=== PATIENT | male | born 1995 | race Caucasian/White ===

== ENCOUNTER 2020-05-27 12:50 | Emergency (ER) | payer OTHER, SELFPAY ==
[2020-05-27 13:01] VITALS: BP 150/90; PULSE 68; RESP 20; TEMP 36.3; O2SAT 99
--- NOTE | 2020-05-27 13:22 | ED.GENADULT ---
HPI - General Adult General Chief complaint: Ear Stated complaint: ear pain Time Seen by Provider: 05/27/20 13:22 Source: patient and RN notes reviewed Mode of arrival: ambulatory Limitations: no limitations History of Present Illness HPI narrative: 24 year old male who presents to [facility] care with complaints of acute pain to his right ear which started this morning. Patient denies any known trauma to his right ear, denies any recent swimming or any noted drainage from his right ear.Patient denies any fevers, chills or sweats, denies any sore throat or any nasal congestion or drainage. MD complaint: right ear pain Onset (ago): hour(s) (5-6 hours ago) Location: head Radiation: non-radiation Severity: moderate Severity scale (1-10): 6 Quality: aching and sharp Pain Consistency: constant Relieving factors: none Associated symptoms: denies other symptoms Treatments prior to arrival: NSAID Related Data Allergies Allergy/AdvReac Type Severity Reaction Status Date / Time No Known Allergies Allergy Verified 11/11/19 09:43 Review of Systems Review of Systems: Narrative: CONSTITUTIONAL: Denies fever, chills, or sweats. EYES: Denies visual changes, redness, or discharge. ENT: Denies rhinorrhea, congestion, sore throat,positive for right ear pain. CARDIOVASCULAR: Denies chest pain, palpitations, or edema. RESPIRATORY: Denies cough or dyspnea. GASTROINTESTINAL: Denies abdominal pain, nausea, vomiting, or diarrhea. GENITOURINARY: Denies dysuria or hematuria. SKIN: Denies rash or itching. MUSCULOSKELETAL: Denies back pain, joint pain, or myalgia. NEUROLOGIC: Denies headache, numbness, or weakness. PSYCHIATRIC: Denies anxiety or depression. All systems reviewed & are unremarkable except as noted in HPI and below PMFSH Past Medical History Medical History (Updated 05/28/20 @ 20:13 by Heather Gutierrez NP) Obesity Surgical History Surgical History (Updated 05/28/20 @ 19:53 by Heather Gutierrez NP) History of tonsillectomy Hx of appendectomy Social History Social History (Updated 05/28/20 @ 19:54 by Heather Gutierrez NP) Smoking status: Never smoker Living arrangements: with family Gender identity (if verbalized by the patient): Male Comments At time of signature, agree with nursing past medical, surgical, social history. There is no relevant family history pertinent to the presenting complaint Exam Narrative: Exam Narrative: GENERAL: Well-appearing, well-nourished, and in no acute distress. HEAD: Normocephalic, atraumatic. EYES: PERRLA and EOMI. ENT: Nares clear, no rhinorrhea or epistaxis. Mucous membranes moist.Right TM red and bulging ear canal red and excoriated no drainage noted, Left TM normal with good light reflex, throat pink with no exudates or lesions NECK: Supple.no lymphadenopathy CHEST: Clear to auscultation. No respiratory distress.SAO2 99% on room air HEART: Regular rate and rhythm. No murmur heard. Normal peripheral pulses. ABDOMEN: Soft, nontender, nondistended, normal active bowel sounds. EXTREMITIES: Normal range of motion. No edema. SKIN: Warm, dry, no rash. NEURO: No focal deficits. Alert and oriented x3. Course Vital Signs Vital signs: Vital Signs Temperature 36.3 C L 05/27/20 13:01 Pulse Rate 68 05/27/20 13:01 Respiratory Rate 05/27/20 13:01 Blood Pressure 150/90 H 05/27/20 13:01 Pulse Oximetry 99 05/27/20 13:01 Temperature 36.3 C L 05/27/20 13:01 Pulse Rate 68 05/27/20 13:01 Respiratory Rate 20 05/27/20 13:01 Blood Pressure 150/90 H 05/27/20 13:01 Pulse Oximetry 99 05/27/20 13:01 Medical Decision Making Differential Diagnosis Differential Diagnosis: otitis media, otitis externa, right ear pain, URI, viral syndrome Medical Records Medical records reviewed: Yes I reviewed the patient's medical records. Vital Signs Vital Signs: Vital Signs Temperature 36.3 C L 05/27/20 13:01 Pulse Rate 68 05/27/20 13:01 Respiratory Rate
== END 2020-05-27 13:51 | disposition home or self-care (01) ==
PROVIDERS: Emergency Provider Registered Nurse
DX: H60.501 Unspecified acute noninfective otitis externa, right ear (principal); H65.01 Acute serous otitis media, right ear
CPT/HCPCS: 99213; G0463

== ENCOUNTER 2023-07-08 08:11 | Emergency (ER) | payer OTHER, SELFPAY ==
--- NOTE | ~2023-07-08 | XR_ITS ---
EXAMINATION: XR heel LT min 2V DATE: 07/08/2023 08:40 INDICATION: Left heel pain. TECHNIQUE: 2 views of left calcaneus were obtained. COMPARISON: None. FINDINGS: Bone alignment is normal. No fracture. Joint spaces are normal. IMPRESSION: 1. Normal left calcaneus. Reviewed, dictated and finalized at location A. IMPRESSION: 1. Normal left calcaneus.
--- NOTE | 2023-07-08 08:18 | ED.LOWEXIN ---
HPI - Extremity Injury (Lower) General Chief Complaint: Extremity Problem,Nontraumatic Stated Complaint: L FOOT PAIN Source: patient and RN notes reviewed Mode of arrival: ambulatory Limitations: no limitations History of Present Illness HPI Narrative: Patient is a 27-year-old male who presents to the [facility] with complaints of left heel pain. Patient states that he experienced this pain yesterday but it worsened upon waking. Patient states that the pain worsens with bearing weight or ambulating. He denies known injury. Patient is neurovascularly intact distal to the area. He denies numbness and sensation is intact. There may be very minor swelling. There is no erythema or signs of injury. Related Data Home Medications Medication Instructions Recorded Confirmed No Home Medications 07/08/23 07/08/23 Allergies Allergy/AdvReac Type Severity Reaction Status Date / Time No Known Allergies Allergy Verified 07/08/23 08:28 Review of Systems Review of Systems: CONSTITUTIONAL: Denies fever, chills, or sweats. EYES: Denies visual changes, redness, or discharge. ENT: Denies otalgia and sore throat CARDIOVASCULAR: Denies chest pain, palpitations, or edema. RESPIRATORY: Denies cough or dyspnea. GASTROINTESTINAL: Denies abdominal pain, nausea, vomiting, or diarrhea. GENITOURINARY: Denies dysuria or hematuria. SKIN: Denies rash or itching. MUSCULOSKELETAL: Denies back pain. Reports left heel pain. NEUROLOGIC: Denies headache, numbness, or weakness. Pertinent positives per HPI. PMFSH Past Medical History Medical History Obesity Surgical History Surgical History (Updated 05/28/20 @ 19:53 by Heather Gutierrez NP) History of tonsillectomy Hx of appendectomy Social History Social History Smoking status: Never smoker Living arrangements: with family Gender identity (if verbalized by the patient): Male Comments At the time of my signature, I reviewed and agree with the nursing past medical, surgical, social, and family history. There is no relevant family history pertinent to the patient complaint. Exam Narrative: GENERAL: This is a well-nourished, well-developed patient, in no apparent distress. HEAD: normocephalic, atraumatic. EYES: PERRL. Sclera clear/white. Vision is grossly intact. EARS: External ears normal. Hearing grossly intact. NOSE: External nose normal with no obvious nasal discharge, nares without redness, no rhinorrhea. THROAT: Mucous membranes moist, posterior pharynx clear. NECK: Neck supple, non-tender without lymphadenopathy, masses or thyromegaly. CARDIOVASCULAR: Regular rate and rhythm without murmurs, gallops, or rubs. RESPIRATORY: Clear to auscultation. Breath sounds equal bilaterally. No wheezes, rales, or rhonchi. GASTROINTESTINAL: Abdomen soft, non-tender, nondistended. Bowel sounds are active. No hepato-splenomegaly, or palpable masses. No guarding. SKIN: warm, intact with no suspicious lesions or rash, good texture and turgor. NEURO: awake, alert, and oriented to person, place and time. There were no obvious focal neurologic abnormalities. EXTREMITIES: No clubbing, cyanosis, or edema. Left heel tenderness. Full range of motion of the left foot. Pulse, sensory, and motor intact. Course Course Level of Care: Express Care Visit Vital Signs Vital signs: Vital Signs Temperature 97.8 F 07/08/23 08:24 Pulse Rate 74 07/08/23 08:24 Respiratory Rate 16 07/08/23 08:24 Blood Pressure 125/87 07/08/23 08:24 Pulse Oximetry 99 07/08/23 08:24 Temperature 97.8 F 07/08/23 08:24 Pulse Rate 74 07/08/23 08:24 Respiratory Rate 16 07/08/23 08:24 Blood Pressure 125/87 07/08/23 08:24 Pulse Oximetry 99 07/08/23 08:24 Reviewed MDM - Extremity Injury (Lower) MDM Narrative Medical decision making narrative: Ice to the area 15-20 min
[2023-07-08 08:24] VITALS: BP 125/87; PULSE 74; RESP 16; TEMP 36.6; O2SAT 99
== END 2023-07-08 08:50 | disposition home or self-care (01) ==
PROVIDERS: Emergency Provider Nurse Practitioner
DX: M72.2 Plantar fascial fibromatosis (principal); E66.9 Obesity, unspecified; Z68.41 Body mass index [BMI] 40.0-44.9, adult
CPT/HCPCS: 73650; 99203; G0463